=== PATIENT | female | born 1945 | race Caucasian/White ===

== ENCOUNTER 2020-02-06 20:05 | Emergency (ER) | payer MEDICARE, OTHER ==
[~2020-02-06] VITALS: Ht 157.5 cm; Wt 78.9 kg
[2020-02-06 20:05] VITALS: BP 137/67
--- NOTE | 2020-02-06 20:32 | NUR ---
RADIOLOGY AT BEDSIDE
--- NOTE | 2020-02-06 20:44 | NUR ---
NEGRO AT BEDSIDE SPEAKING TO PT.
[2020-02-06] MEDS ORDERED: ACETAMINOPHEN 325 MG TABLET ONE (22:23)
--- NOTE | 2020-02-06 22:28 | NUR ---
Patient discharged to home in stable condition. Written and verbal after care instructions given. Patient verbalizes understanding of instruction. ambulatory with a steady gait
[2020-02-06] MEDS ORDERED: ACETAMINOPHEN 325 MG TABLET PO ONE (22:30)
== END 2020-02-06 22:37 | disposition home or self-care (01) ==
LOC: ER 20:06
DX: S20.212A Contusion of left front wall of thorax, initial encounter (principal); M25.512 Pain in left shoulder; I10 Essential (primary) hypertension; V49.59XA Passenger injured in collision with other motor vehicles in traffic accident, initial encounter; Y93.89 Activity, other specified; Y92.488 Other paved roadways as the place of occurrence of the external cause; Y99.8 Other external cause status
CPT/HCPCS: 71045-TC